=== PATIENT | male | born 1985 | race Caucasian/White ===

== ENCOUNTER 2018-05-09 13:32 | Inpatient (IN) | payer OTHER ==
--- NOTE | 2018-05-09 18:17 | HP ---
COWS - Scale Resting Pulse: 0= NE 80 or Below Sweatin=Flushed/Facial Moisture Restless Observation: 1= Difficult to Sit Still Pupil Size: 0= Normal to Room Light Bone or Joint Aches: 2= Severe Diffuse Aches Runny Nose/ Eye Tearin= Runny Nose/Eyes GI Upset > 30mins: 2= Nausea/Diarrhea Tremor Observation: 2= Slight Tremor Visible Yawning Observation: 2= >3x During Session Anxiety or Irritability: 2=Irritable/Anxious Goose Flesh Skin: 3=Piloerection COWS Score: 18 Admission ROS S - HPI Chief Complaint: I am here because i need help to get clean. Allergies/Adverse Reactions: Allergies Allergy/AdvReac Type Severity Reaction Status Date / Time bupropion [From Wellbutrin] Allergy Severe Hives Verified 05/09/18 16:51 History of Present Illness: pt is a 33yr old male with a h/o opioid dependence seeking detox for treatment.pt states he was exposed to poison charleen a couple of days ago and now has a rash to arms. pt states that prednison taper has helped in the past. Exam Limitations: No Limitations - Ebola screening Have you traveled outside of the country in the last 21 days: No Have you had contact with anyone from an Ebola affected area: No Have you been sick,other than usual withdrawal symptoms: No Do you have a fever: No - Review of Systems Constitutional: Chills, Diaphoresis, Loss of Appetite, Night Sweats, Changes in sleep, Unexplained wgt Loss EENT: reports: Tearing, Nose Congestion Respiratory: reports: No Symptoms reported Cardiac: reports: No Symptoms Reported GI: reports: Diarrhea, Nausea, Poor Appetite, Poor Fluid Intake : reports: No Symptoms Reported Musculoskeletal: reports: Back Pain Integumentary: reports: Flushing, Rash (pt was exposed to poison charleen about two days ago.), Sweating Neuro: reports: Headache, Tingling, Tremors Endocrine: reports: Excessive Sweating, Flushing Hematology: reports: No Symptoms Reported Psychiatric: reports: Judgement Intact, Orientated x3, Agitated, Anxious Other Systems: Reviewed and Negative Patient History - Patient Medical History Hx Anemia: No Hx Asthma: No Hx Chronic Obstructive Pulmonary Disease (COPD): No Hx Cancer: No Hx Cardiac Disorders: No Hx Congestive Heart Failure: No Hx Hypertension: No Hx Hypercholesterolemia: No Hx Pacemaker: No HX Cerebrovascular Accident: No Hx Seizures: No Hx Dementia: No Hx Diabetes: No Hx Gastrointestinal Disorders: No Hx Liver Disease: No Hx Genitourinary Disorders: No Hx Sexually Transmitted Disorders: No Hx Renal Disease (ESRD): No Hx Thyroid Disease: No Hx Human Immunodeficiency Virus (HIV): No Hx Hepatitis C: No Hx Depression: Yes Hx Suicide Attempt: No Hx Bipolar Disorder: Yes Hx Schizophrenia: No Other Medical History: ptsd, anxiety, bipolar - Patient Surgical History Past Surgical History: No Hx Neurologic Surgery: No Hx Cataract Extraction: No Hx Cardiac Surgery: No Hx Lung Surgery: No Hx Breast Surgery: No Hx Breast Biopsy: No Hx Abdominal Surgery: No Hx Appendectomy: No Hx Cholecystectomy: No Hx Genitourinary Surgery: No Hx Section: No Hx Orthopedic Surgery: No Anesthesia Reaction: No - PPD History Previous Implant?: Yes Documented Results: Negative w/o proof Implanted On Prior R Admission?: No PPD to be Administered?: Yes - Reproductive History Patient is a Female of Child Bearing Age (11 -55 yrs old): No - Smoking Cessation Smoking history: Current every day smoker Have you smoked in the past 12 months: Yes Aproximately how many cigarettes per day: 20 Hx Chewing Tobacco Use: No Initiated information on smoking cessation: Yes 'Breaking Loose' booklet given: 05/09/18 - Substance & Tx. History Hx Alcohol Use: No Hx Substance Use: Yes Substance Use Type: Cocaine, Heroin Hx Substance Use Treatment: Yes (last detox april 2018 [facility]) - Substances Abused Heroin Route: Injection Frequency: Daily Amount used: 20 bags Age of first use: 26 Date of Last Use: 05/08/18 Cocaine Route: Injection Frequency: 3-6 times per week Amount used: 1 gm. Age of first use: 19 Date of Last Use: 05/08/18 Marijuana Route: Smoking Frequency: Daily Amount used: $20 Age of first use: 14 Date of Last Use: 05/08/18 Family Disease History - Family Disease History Family Disease History: [place]: Grandparent, Father Admission Physical Exam BHS - Vital Signs Vital Signs: Vital Signs - 24 hr 05/09/18 15:17 Temperature 96.9 F L Pulse Rate 67 Respiratory 18 Rate Blood Pressure 116/59 - Physical General Appearance: Yes: Appropriately Dressed, Moderate Distress, Tremorous, Irritable, Sweating, Anxious HEENTM: Yes: Normal Voice, Nasal Congestion, Rhinorrhea Respiratory: Yes: Lungs Clear, Normal Breath Sounds, No Respiratory Distress Neck: Yes: No masses,lesions,Nodules Breast: Yes: Within Normal Limits Cardiology: Yes: Regular Rhythm, Regular Rate, S1, S2 Abdominal: Yes: Normal Bowel Sounds Genitourinary: Yes: Within Normal Limits Back: Yes: Normal Inspection Musculoskeletal: Yes: full range of Motion, Back pain Extremities: Yes: Normal Capillary Refill, Non-Tender, Tremors Neurological: Yes: Fully Oriented, Alert, Normal Response Integumentary: Yes: Normal Color, Rash (exposed to poision charleen a couple of days ago.) Lymphatic: Yes: Within Normal Limits - Diagnostic (1) Opioid dependence with withdrawal Current Visit: Yes Status: Chronic (2) Contact dermatitis due to poison charleen Current Visit: Yes Status: Acute (3) Smoking hx Current Visit: Yes Status: Chronic Cleared for Admission [facility] - Detox or Rehab [facility] Level of Care: Medically Managed Detox Regimen/Protocol: Methadone [facility] Breath Alcohol Content Breath Alcohol Content: 0 Urine Drug Screen - Results Drug Screen Negative: No Urine Drug Screen Results: THC-Marijuana, GEORGE-Cocaine, OPI-Opiates
[2018-05-09] MEDS ORDERED: MENTHOL/PHENOL 1 EACH UD MM PRN (18:35)
[2018-05-09] MEDS ORDERED: P-EPHED 60MG/TRIPROLIDI 2.5MG TABLET PO PRN (18:35)
[2018-05-09] MEDS ORDERED: IBUPROFEN 400 MG TABLET (FP) PO PRN (18:35)
[2018-05-09] MEDS ORDERED: MAGNESIUM HYDROX 2400MG/30ML ORAL SUSPENSION 30 ML CUP PO PRN (18:35)
[2018-05-09] MEDS ORDERED: hydrOXYzine PAMOATE 50 MG CAPSULE (FP) PO PRN (18:35)
[2018-05-09] MEDS ORDERED: METHADONE HCL 10 MG TABLET (FOR DETOX USE ONLY) PO ONE ×2 (18:35→23:00)
[2018-05-09] MEDS ORDERED: MAGNESIUM CITRATE 300 ML BOTTLE PO PRN (18:35)
[2018-05-09] MEDS ORDERED: ACETAMINOPHEN 325 MG TABLET (FP) PO PRN (18:35)
[2018-05-09] MEDS ORDERED: MAG HYDROX/AL HYDROX/SIMETH 30 ML UNIT-DOSE CUP PO PRN (18:35)
[2018-05-09] MEDS ORDERED: NICOTINE POLACRILEX 4 MG GUM BC PRN (18:35)
[2018-05-09] MEDS ORDERED: guaiFENesin/D-METHORPHAN HB 10 ML UNIT-DOSE CUPS PO PRN (18:35)
[2018-05-09] MEDS ORDERED: LOPERAMIDE HCL 2 MG CAPSULE PO PRN (18:35)
[2018-05-09] MEDS ORDERED: methylPREDNISolone 4 MG TABLET PO ONE (19:00)
[2018-05-09] MEDS: diazePAM 5 MG TABLET PO PRN (19:13)
[2018-05-09] MEDS ORDERED: MELATONIN 5 MG TABLETS PO PRN (22:00)
[2018-05-09] MEDS: methylPREDNISolone 4 MG TABLET PO SCH (22:30)
[2018-05-09] MEDS: THIAMINE HCL 100 MG TABLET (FP) PO SCH (22:31)
[2018-05-10] MEDS: diazePAM 5 MG TABLET PO PRN ×4 (05:29→22:05)
[2018-05-10] MEDS: methylPREDNISolone 4 MG TABLET PO SCH ×4 (07:38→22:05)
[2018-05-10 09:52] LABS: URINE APPEARANCE CLEAR; URINE BILIRUBIN NEGATIVE (<2.0 mg/dL); URINE COLOR STRAW; URINE GLUCOSE (UA) NEGATIVE (NEGATIVE); URINE KETONE NEGATIVE (NEGATIVE); URINE LEUK ESTERASE TRACE (NEGATIVE); URINE NITRITE NEGATIVE (NEGATIVE); URINE PROTEIN NEGATIVE (NEGATIVE)
[2018-05-10 09:54] LABS: HEMOGLOBIN 12.8 GM/dL (11.7-16.9); MCH 28.6 pg (25.7-33.7); MCHC 33.7 g/dl (32.0-35.9); MEAN CELL VOLUME 84.9 fl (80-96); MEAN PLT VOLUME 8.1 fl (7.5-11.1); PLATELET COUNT 258 K/MM3 (134-434); RBC 4.48 M/mm3 (4.00-5.60); RDW 15.8 % (11.9-15.9); WHITE BLOOD COUNT 7.1 K/mm3 (4.0-10.0)
[2018-05-10 10:00] LABS: URINE MUCUS RARE
[2018-05-10] MEDS ORDERED: METHADONE HCL 10 MG TABLET (FOR DETOX USE ONLY) PO ONE (10:00)
[2018-05-10 10:45] LABS: ANION GAP 7 (8-16); BILIRUBIN,TOTAL 0.2 mg/dL (0.2-1.0); BLOOD UREA NITROGEN 11 mg/dL (7-18); CALCIUM 8.6 mg/dL (8.5-10.1); CHLORIDE 106 mmol/L (98-107); CO2 28 mmol/L (21-32); CREATININE 0.7 mg/dL (0.7-1.3); GLUCOSE,RANDOM 137 mg/dL (74-106); POTASSIUM 4.6 mmol/L (3.5-5.1); SGOT/AST 24 U/L (15-37); SGPT/ALT 35 U/L (12-78); SODIUM 141 mmol/L (136-145); TOT PROT 6.5 g/dl (6.4-8.2)
[2018-05-10] MEDS: NICOTINE 21 MG/24 HOURS TOPICAL PATCH TD SCH (10:45)
[2018-05-10 10:46] LABS: ALK PHOS 57 U/L (45-117)
[2018-05-10] MEDS: PRENATAL VITAMINS W/ FOLIC ACID TABLET (FP) PO SCH (10:48)
--- NOTE | 2018-05-10 15:17 | PN ---
BHS COWS - Scale Resting Pulse: 0= [place] 80 or Below Sweatin=Flushed/Facial Moisture Restless Observation: 0= Sits Still Pupil Size: 0= Normal to Room Light Bone or Joint Aches: 0= None Runny Nose/ Eye Tearin= Nasal Congestion GI Upset > 30mins: 0= None Tremor Observation of Outstretched Hands: 2= Slight Tremor Visible Yawning Observation: 1= 1-2x During Session Anxiety or Irritability: 2=Irritable/Anxious Goose Flesh Skin: 3=Piloerection COWS Score: 11 BHS Progress Note (SOAP) Subjective: Sweating, Fatigue, Tremors. Objective: PATIENT A & O X 2 (UNCERTAIN ABOUT CURRENT DAY / DATE). PATIENT OBSERVED AMBULATING ON UNIT. NO ACUTE DISTRESS. 05/10/18 15:16 Vital Signs Temperature 97.7 F 05/10/18 14:48 Pulse Rate 67 05/10/18 14:48 Respiratory Rate 18 05/10/18 14:48 Blood Pressure 97/51 05/10/18 14:48 O2 Sat by Pulse Oximetry (%) Laboratory Tests 05/10/18 05/10/18 05/10/18 07:40 07:40 07:40 WBC 7.1 RBC 4.48 Hgb 12.8 Hct 38.0 MCV 84.9 MCH 28.6 MCHC 33.7 RDW 15.8 Plt Count 258 MPV 8.1 Sodium 141 Potassium 4.6 Chloride 106 Carbon Dioxide 28 Anion Gap 7 L BUN 11 Creatinine 0.7 Creat Clearance w eGFR > 60 Random Glucose 137 H Calcium 8.6 Total Bilirubin 0.2 AST 24 ALT 35 Alkaline Phosphatase 57 Total Protein 6.5 Albumin 3.0 L Urine Color Urine Appearance Urine pH Ur Specific [place] Urine Protein Urine Glucose (UA) Urine Ketones Urine Blood Urine Nitrite Urine Bilirubin Urine Urobilinogen Ur Leukocyte Esterase Urine WBC (Auto) Urine RBC (Auto) Urine Mucus HIV 1&2 Antibody Screen Negative HIV P24 Antigen Negative 05/10/18 08:40 WBC RBC Hgb Hct MCV MCH MCHC RDW Plt Count MPV Sodium Potassium Chloride Carbon Dioxide Anion Gap BUN Creatinine Creat Clearance w eGFR Random Glucose Calcium Total Bilirubin AST ALT Alkaline Phosphatase Total Protein Albumin Urine Color Straw Urine Appearance Clear Urine pH 7.0 Ur Specific [place] 1.012 Urine Protein Negative Urine Glucose (UA) Negative Urine Ketones Negative Urine Blood Negative Urine Nitrite Negative Urine Bilirubin Negative Urine Urobilinogen 2.0 Ur Leukocyte Esterase Trace Urine WBC (Auto) 28 Urine RBC (Auto) 1 Urine Mucus Rare HIV 1&2 Antibody Screen HIV P24 Antigen LABS NOTED. RPR RESULT PENDING. 05/10/18 15:16 Assessment: 05/10/18 15:16 WITHDRAWAL SYMPTOMS. Plan: CONTINUE DETOX. INCREASE DAILY PO FLUID INTAKE. REPEAT UA FOR ADMISSION ABNORMALITIES.
--- NOTE | 2018-05-10 17:23 | CONSULT ---
[facility] Psychiatric Consult - Data Date of interview: 05/10/18 Admission source: [facility] Identifying data: First admission to [facility] for this 33 y/o [place] male seeking detox treatment on for cocaine and cannabis dependence.Patient is single,a father of seven,homeless,unemployed and reportedly deprived of any source of income. Substance Abuse History: Confirmed by the patient in this interview.Smoking history: Current every day smoker. Have you smoked in the past 12 months: Yes. Aproximately how many cigarettes per day: 20. Hx Chewing Tobacco Use: No. Initiated information on smoking cessation: Yes. 'Breaking Loose' booklet given : 05/09/18. - Substance & Tx. History. Hx Alcohol Use: No. Hx Substance Use: Yes. Substance Use Type: Cocaine, Heroin. Hx Substance Use Treatment: Yes ( last detox april 2018 [facility]). - Substances Abused. Heroin. Route: Injection. Frequency: Daily. Amount used: 20 bags. Age of first use: 26. Date of Last Use: 05/08/18. Cocaine. Route: Injection. Frequency: 3- 6 times per week. Amount used: 1 gm. Age of first use: 19. Date of Last Use: 05/08/18. Marijuana. Route: Smoking. Frequency: Daily. Amount used: $20. Age of first use: 14. Date of Last Use: 05/08/18 Medical History: Hepatitis C,chronic lumbar pain and herniated discs. Psychiatric History: Patient reports a history of " more than 12 " psychiatric hospitalizations ([facility] + [facility] in [facility]).Diagnosed with PTSD and ADHD.Mr Segovia declares that he used to be prescribed lithium,adderall,valproate,seroquel and other unnamed medications.NOT on any medications for past 8 months as per self-report.No contact with any outpatient program.Patient denies history of suicide attempts. Physical/Sexual Abuse/Trauma History: Patient denies. Additional Comment: Urine Drug Screen Results: THC-Marijuana, GEORGE-Cocaine, OPI- Opiates.Noted. Mental Status Exam - Mental Status Exam Alert and Oriented to: Time, Place, Person Cognitive Function: Good Patient Appearance: Unkempt, Disheveled Mood: Nervous, Withdrawn Affect: Mood Congruent Patient Behavior: Fatigued, Cooperative Speech Pattern: Clear Voice Loudness: Normal Thought Process: Goal Oriented Thought Disorder: Not Present Hallucinations: Denies Suicidal Ideation: Denies Homicidal Ideation: Denies Insight/Judgement: Poor Sleep: Difficulty falling asleep Appetite: Good Muscle strength/Tone: Normal Gait/Station: Normal Psychiatric Findings - Problem List ([place] 1, 2,3) (1) Opioid dependence with withdrawal Current Visit: Yes Status: Acute (2) Cannabis dependence Current Visit: Yes Status: Acute (3) Cocaine dependence Current Visit: Yes Status: Acute (4) Substance induced mood disorder Current Visit: Yes Status: Acute (5) Insomnia Current Visit: Yes Status: Acute - Initial Treatment Plan Initial Treatment Plan: Psychoeducation.Sleep hygiene.Detoxification in progress.No indication for addition of any psychotropic medication at this time.Emphasis is on detoxification treatment.Patient is agreeable to transition to rehabilitation upon completion of this program.Further psychiatric follow up will implemented for the determination of necessity for resumption of psychotropic medications.Discussed with the patient.Ambien 5 mg po hs prn is ordered to address insomnia.Patient is made aware of the risk of parasomnias.Agrees to this careplan.Observation.
[2018-05-10] MEDS ORDERED: ZOLPIDEM TARTRATE 5 MG TABLET PO PRN (22:00)
[2018-05-10] MEDS: THIAMINE HCL 100 MG TABLET (FP) PO SCH (22:05)
[2018-05-11] MEDS: diazePAM 5 MG TABLET PO PRN ×2 (05:28→10:34)
[2018-05-11] MEDS: methylPREDNISolone 4 MG TABLET PO SCH ×2 (07:23→12:40)
--- NOTE | 2018-05-11 09:03 | EKG ---
Test Reason : Blood Pressure : / mmHG Vent. Rate : 062 BPM Atrial Rate : 062 BPM P-R Int : 120 ms QRS Dur : 084 ms QT Int : 404 ms P-R-T Axes : 045 135 044 degrees QTc Int : 410 ms NORMAL SINUS RHYTHM LATERAL INFARCT , AGE UNDETERMINED ABNORMAL ECG NO PREVIOUS ECGS AVAILABLE Confirmed by LEO NOLEN MD ([id number]) on 05/11/2018 9:03:03 AM Referred By: Confirmed By:LEO NOLEN MD
[2018-05-11] MEDS ORDERED: METHADONE HCL 5 MG TABLET (FOR DETOX USE ONLY) PO ONE (10:00)
[2018-05-11] MEDS: NICOTINE 21 MG/24 HOURS TOPICAL PATCH TD SCH (10:34)
[2018-05-11] MEDS: PRENATAL VITAMINS W/ FOLIC ACID TABLET (FP) PO SCH (10:34)
[2018-05-11 11:05] VITALS: BP 85/53; PULSE 67; TEMP 99.2
--- NOTE | 2018-05-11 16:25 | PN ---
BHS COWS - Scale Resting Pulse: 0= [place] 80 or Below Sweatin= Chills/Flushing Restless Observation: 1= Difficult to Sit Still Pupil Size: 0= Normal to Room Light Bone or Joint Aches: 0= None Runny Nose/ Eye Tearin= None GI Upset > 30mins: 0= None Tremor Observation of Outstretched Hands: 2= Slight Tremor Visible Yawning Observation: 1= 1-2x During Session Anxiety or Irritability: 2=Irritable/Anxious Goose Flesh Skin: 3=Piloerection COWS Score: 10 BHS Progress Note (SOAP) Subjective: Sweating, Tremors, Anxious. Objective: PATIENT A & O X 3, OBSERVED AMBULATING ON UNIT. NO ACUTE DISTRESS. 05/11/18 16:24 Vital Signs Temperature 99.2 F 05/11/18 11:04 Pulse Rate 67 05/11/18 11:04 Respiratory Rate 19 05/11/18 11:04 Blood Pressure 85/53 05/11/18 11:04 O2 Sat by Pulse Oximetry (%) Laboratory Tests 05/10/18 05/10/18 05/10/18 07:40 07:40 07:40 WBC 7.1 RBC 4.48 Hgb 12.8 Hct 38.0 MCV 84.9 MCH 28.6 MCHC 33.7 RDW 15.8 Plt Count 258 MPV 8.1 Sodium 141 Potassium 4.6 Chloride 106 Carbon Dioxide 28 Anion Gap 7 L BUN 11 Creatinine 0.7 Creat Clearance w eGFR > 60 Random Glucose 137 H Calcium 8.6 Total Bilirubin 0.2 AST 24 ALT 35 Alkaline Phosphatase 57 Total Protein 6.5 Albumin 3.0 L Urine Color Urine Appearance Urine pH Ur Specific [place] Urine Protein Urine Glucose (UA) Urine Ketones Urine Blood Urine Nitrite Urine Bilirubin Urine Urobilinogen Ur Leukocyte Esterase Urine WBC (Auto) Urine RBC (Auto) Urine Mucus RPR Titer HIV 1&2 Antibody Screen Negative HIV P24 Antigen Negative 05/10/18 05/10/18 07:40 08:40 WBC RBC Hgb Hct MCV MCH MCHC RDW Plt Count MPV Sodium Potassium Chloride Carbon Dioxide Anion Gap BUN Creatinine Creat Clearance w eGFR Random Glucose Calcium Total Bilirubin AST ALT Alkaline Phosphatase Total Protein Albumin Urine Color Straw Urine Appearance Clear Urine pH 7.0 Ur Specific [place] 1.012 Urine Protein Negative Urine Glucose (UA) Negative Urine Ketones Negative Urine Blood Negative Urine Nitrite Negative Urine Bilirubin Negative Urine Urobilinogen 2.0 Ur Leukocyte Esterase Trace Urine WBC (Auto) 28 Urine RBC (Auto) 1 Urine Mucus Rare RPR Titer Nonreactive HIV 1&2 Antibody Screen HIV P24 Antigen LABS NOTED. Assessment: 05/11/18 16:24 WITHDRAWAL SYMPTOMS. Plan: CONTINUE DETOX.
--- NOTE | 2018-05-11 16:31 | DS ---
[facility] Detox Discharge Summary Admission Date: 05/09/18 Discharge Date: 05/11/18 - History Present History: Cannabis Dependence, Cocaine Dependence, Opioid Dependence Additional Comments: PATIENT DOES NOT WISH TO REMAIN TO COMPLETE DETOX REGIMEN. RISKS OF LEAVING DETOX UNIT AGAINST MEDICAL ADVICE AND PRIOR TO COMPLETION OF DETOX REGIMEN EXPLAINED TO PATIENT. PRESCRIPTION OF REMAINDER OF COURSE OF PREDNISONE INITIALLY PRESCRIBED TO PATIENT FOR TREATMENT OF POISON HALIE WHILE ADMITTED TO DETOX SENT TO PATIENT'S PHARMACY ([facility] FOR AFTERCARE. PATIENT ADVISED TO GO TO [facility] AND TO START TAKING TODAY. PATIENT ADVISED TO GO IMMEDIATELY TO NEAREST ER SHOULD ANY INTOLERABLE DETOX SYMPTOMS DEVELOP AT ANY TIME. PATIENT LEFT DETOX UNIT IN STABLE MEDICAL CONDITION. Pertinent Past History: History of Anxiety, History of Bipolar Disorder, History of PTSD, Insomnia, Contact Dermatitis due to Poison Halie, Nicotine Dependence. - Physical Exam Results Vital Signs: Vital Signs Temperature 99.2 F 05/11/18 11:04 Pulse Rate 67 05/11/18 11:04 Respiratory Rate 19 05/11/18 11:04 Blood Pressure 85/53 05/11/18 11:04 O2 Sat by Pulse Oximetry (%) Pertinent Admission Physical Exam Findings: WITHDRAWAL SYMPTOMS. Laboratory Tests 05/10/18 05/10/18 05/10/18 07:40 07:40 07:40 WBC 7.1 RBC 4.48 Hgb 12.8 Hct 38.0 MCV 84.9 MCH 28.6 MCHC 33.7 RDW 15.8 Plt Count 258 MPV 8.1 Sodium 141 Potassium 4.6 Chloride 106 Carbon Dioxide 28 Anion Gap 7 L BUN 11 Creatinine 0.7 Creat Clearance w eGFR > 60 Random Glucose 137 H Calcium 8.6 Total Bilirubin 0.2 AST 24 ALT 35 Alkaline Phosphatase 57 Total Protein 6.5 Albumin 3.0 L Urine Color Urine Appearance Urine pH Ur Specific [place] Urine Protein Urine Glucose (UA) Urine Ketones Urine Blood Urine Nitrite Urine Bilirubin Urine Urobilinogen Ur Leukocyte Esterase Urine WBC (Auto) Urine RBC (Auto) Urine Mucus RPR Titer HIV 1&2 Antibody Screen Negative HIV P24 Antigen Negative 05/10/18 05/10/18 07:40 08:40 WBC RBC Hgb Hct MCV MCH MCHC RDW Plt Count MPV Sodium Potassium Chloride Carbon Dioxide Anion Gap BUN Creatinine Creat Clearance w eGFR Random Glucose Calcium Total Bilirubin AST ALT Alkaline Phosphatase Total Protein Albumin Urine Color Straw Urine Appearance Clear Urine pH 7.0 Ur Specific [place] 1.012 Urine Protein Negative Urine Glucose (UA) Negative Urine Ketones Negative Urine Blood Negative Urine Nitrite Negative Urine Bilirubin Negative Urine Urobilinogen 2.0 Ur Leukocyte Esterase Trace Urine WBC (Auto) 28 Urine RBC (Auto) 1 Urine Mucus Rare RPR Titer Nonreactive HIV 1&2 Antibody Screen HIV P24 Antigen LABS NOTED. - Treatment Hospital Course: Detoxed Safely - Medication Discharge Medications: Ambulatory Orders Prednisone 10 mg PO DAILY 3 Days #3 tab.ds.pk 05/11/18 - Diagnosis (1) Contact dermatitis due to poison halie Status: Acute (2) Opioid dependence with withdrawal Status: Acute (3) Smoking hx Status: Chronic (4) Cannabis dependence Status: Acute (5) Cocaine dependence Status: Acute Qualifiers: Substance use status: uncomplicated Qualified Code(s): F14.20 - Cocaine dependence, uncomplicated (6) Insomnia Status: Acute Qualifiers: Insomnia type: unspecified Qualified Code(s): G47.00 - Insomnia, unspecified (7) Substance induced mood disorder Status: Acute - AMA Did Patient Leave Against Medical Advice: Yes (PATIENT DID NOT WISH TO REMAIN TO COMPLETE DETOX REGIMEN.)
[2018-05-11] MEDS ORDERED: methylPREDNISolone 4 MG TABLET PO SCH (22:00)
[2018-05-12] MEDS ORDERED: METHADONE HCL 5 MG TABLET (FOR DETOX USE ONLY) PO ONE (10:00)
[2018-05-12] MEDS ORDERED: methylPREDNISolone 4 MG TABLET PO SCH (12:00)
[2018-05-13] MEDS ORDERED: METHADONE HCL 10 MG TABLET (FOR DETOX USE ONLY) PO ONE (10:00)
[2018-05-14] MEDS ORDERED: METHADONE HCL 5 MG TABLET (FOR DETOX USE ONLY) PO ONE (06:00)
== END 2018-05-11 14:32 | disposition left against medical advice (07) | DRG 770 ==
LOC: YASAS 13:32 → Y3N 17:24
PROVIDERS: ADMIT Surgery; ATTEND Surgery
PROC: HZ2ZZZZ Detoxification Services for Substance Abuse Treatment (ICD-10-PCS; principal; 2018-05-09)
DX: F11.23 Opioid dependence with withdrawal (principal); F14.20 Cocaine dependence, uncomplicated; F12.20 Cannabis dependence, uncomplicated; F17.210 Nicotine dependence, cigarettes, uncomplicated; F19.24 Other psychoactive substance dependence with psychoactive substance-induced mood disorder; G47.00 Insomnia, unspecified
CPT/HCPCS: 36415; 80053; 81003; 81015; 85027; 86593; 87389; 93005; 93010